=== PATIENT | female | born 1960 | race American Indian/Alaskan Native ===

== ENCOUNTER 2018-02-12 12:55 | Emergency (ER) | payer MEDICAID, OTHER ==
--- NOTE | 2018-02-12 13:15 | Emergency Department Report ---
ED CPR HPI - General Chief Complaint: Cardiac Arrest/CPR Stated Complaint: CARDIAC ARREST Time Seen by Provider: 02/12/18 13:14 Source: EMS (verbal report received from EMS.ems notes not available at time of chart dictation), RN notes reviewed, old records reviewed Mode of arrival: Stretcher Limitations: Other - History of Present Illness Initial Comments: This is a 57-year-old female who is not known to this provider previously. Past medical history includes stroke, paroxysmal atrial fibrillation, pulmonary embolus, lower extremity DVT, with extensive "left lower extremity DVT." As per review of old medical records, patient has been discharged on systemic anticoagulation; eliquis Patient presents to the ER today as an out of hospital cardiac arrest. As per verbal report from EMS, patient found down by family, for uncertain duration of time, and uncertain mechanism. Patient received intubation, high quality CPR, standard ACLS medications, and numerous defibrillations. Upon arrival to the ER, patient had been pulseless and in the care of EMS for approximately 25 minutes. Her pupils were fixed and dilated, and she was found to be in asystole. Standard resuscitation measures were undertaken. Patient continued to receive high quality CPR, appropriate medications, and received bag valve mask ventilation from respiratory therapy. Unfortunately, pulses could not be obtained, and resuscitation efforts were terminated. Patient's family was subsequently informed. MD Complaint: found unresponsive Initial Findings in the Field: VTACH/VFIB, PEA ROSC in the Field: No Associated Injuries: No Treatments Prior to Arrival: intubation, chest compressions, defribrillated shocks #, epinephrine mgs # - Related Data Home Medications Medication Instructions Recorded Confirmed Last Taken Furosemide [Lasix TAB] 40 mg PO QDAY 01/04/18 01/04/18 Unknown Lisinopril [Zestril TAB] 10 mg PO QDAY 01/04/18 01/04/18 Unknown Metoprolol [Lopressor TAB] 25 mg PO BID 01/04/18 01/04/18 Unknown Previous Rx's Medication Instructions Recorded Last Taken Type Apixaban [Eliquis] 5 mg PO BID #74 tablet 01/07/18 Unknown Rx Allergies Allergy/AdvReac Type Severity Reaction Status Date / Time shellfish derived Allergy Unknown Verified 01/04/18 18:52 ED Review of Systems ROS: Stated complaint: CARDIAC ARREST Other details as noted in HPI Comment: Unobtainable due to pts medical conditions ED Past Medical Hx - Past Medical History Hx Hypertension: Yes Hx CVA: Yes (left-sided weakness, cannot walk,uses w/c) Hx Asthma: No Additional medical history: Atrial fibrillation - Social History Smoking Status: Never Smoker - Medications Home Medications: Home Medications Medication Instructions Recorded Confirmed Last Taken Type Furosemide [Lasix TAB] 40 mg PO QDAY 01/04/18 01/04/18 Unknown History Lisinopril [Zestril TAB] 10 mg PO QDAY 01/04/18 01/04/18 Unknown History Metoprolol [Lopressor TAB] 25 mg PO BID 01/04/18 01/04/18 Unknown History Apixaban [Eliquis] 5 mg PO BID #74 tablet 01/07/18 Unknown Rx ED Physical Exam - General Limitations: Other (nonverbal, intubated, GCS of 3) General appearance: other (patient is nonverbal) - Head Head exam: Present: atraumatic, normocephalic - Eye Eye exam: Present: normal appearance (pupils are dilated and do not react to light) - ENT ENT exam: Present: normal exam (endotracheal tube is noted in the oropharynx) - Neck Neck exam: Present: normal inspection - Respiratory Respiratory exam: Absent: normal lung sounds bilaterally (no breath sounds are most [id number] ventilation is applied) - Cardiovascular Cardiovascular Exam: Present: other (patient is pulseless) - GI/Abdominal GI/Abdominal exam: Present: soft - External exam: Present: normal external exam - Extremities Exam Extremities exam: Present: normal inspection - Back Exam Back exam: Present: normal inspection - Neurological Exam Neurological exam: Present: altered (nonverbal, GCS of 3) - Psychiatric Psychiatric exam: Present: other (patient is nonverbal) - Skin Skin exam: Present: dry - IO Right Tibia Consent Obtained: emergent situation Time Out Performed: No IO Instrument Used to Penetrate the Cortex: standard IO needle Patient Tolerated Procedure: well Complications: none Additional Comments: Right lower extremity intraosseous line is placed under my direct supervision by EMS personnel. ED Medical Decision Making - Medical Decision Making Differential diagnosis, including but not limited to: Intracranial hemorrhage, pulmonary embolus, acute coronary syndrome Critical care attestation.: If time is entered above; I have spent that time in minutes in the direct care of this critically ill patient, excluding procedure time. ED Disposition Clinical Impression: Cardiac arrest Disposition: DC-20 Is pt being admited?: No Does the pt Need Aspirin: No Condition: Undetermined Referrals: PRIMARY CARE, [Primary Care Provider] - 3-5 Days
== END 2018-02-12 18:24 ==
LOC: ED 12:55
DX: I46.9 Cardiac arrest, cause unspecified (principal); I10 Essential (primary) hypertension; I48.91 Unspecified atrial fibrillation; Z86.718 Personal history of other venous thrombosis and embolism; Z91.013 Allergy to seafood
CPT/HCPCS: 92950